=== PATIENT | female | born 2000 | race Caucasian/White ===

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

== ENCOUNTER 2020-02-04 18:03 | Emergency (ER) | payer MEDICAID ==
[2020-02-04] MEDS ORDERED: Sodium Chloride 0.9% 10 ML Syringe FLUSH PRN (18:20)
[2020-02-04 18:56] VITALS: BP 129/96; PULSE 80
--- NOTE | 2020-02-04 19:07 | EDM.PDOC ---
ED HPI GENERAL MEDICAL PROBLEM - General Chief Complaint: Abdominal Pain Stated Complaint: PAIN IN RT ABDOMEN Time Seen by Provider: 02/04/20 18:15 Source of Information: Reports: Patient History Limitations: Reports: No Limitations - History of Present Illness INITIAL COMMENTS - FREE TEXT/NARRATIVE: Patient comes emergency department today with complaints of increasing right u pper quadrant pain. This patient has noticed over the past couple of months that she has had this soreness painful area to her right upper quadrant that kind of comes and goes on its own. Since last night the pain is gotten worse and is very tender when she the right upper quadrant. She has had some nausea without vomiting. She has had poor appetite. No chest pain no shortness of breath or difficulty breathing. No cough or congestion. No fever no chills. No diarrhea. No other abdominal pain. No hematuria dysuria or urinary frequency. No flank pain. She has not tried anything for pain prior to arrival. She denies any previous surgeries on her abdomen. She denies being . 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: Reports: Acetaminophen Right Upper Abdomen Pain Score (Numeric/FACES): 8 - Related Data Allergies Allergy/AdvReac Type Severity Reaction Status Date / Time bee pollen Allergy Itching Verified 02/04/20 18:50 house dust Allergy Itching Verified 02/04/20 18:50 Home Meds: Home Meds Ibuprofen [Motrin] 200 mg PO Q4H PRN 04/24/13 [History] EPINEPHrine [Epipen Jr 2-Alistair] 0.15 mg IJ ASDIRECTED PRN #1 syr 12/04/13 [Rx] Multivitamin [Multi Vitamin Daily] 1 tab PO DAILY 12/04/13 [History] Acetaminophen [Tylenol] 650 mg PO Q4H PRN 02/04/20 [History] Amoxicillin/Potassium Clav [Amox-Clav 875-125 mg Tablet] 1 tab PO TID 02/04/20 [History] Hydrocodone/Acetaminophen [[place] 5-325 Tablet] 1 each PO Q6H #10 tablet 02/04/20 [Rx] Past Medical History - Past Health History Medical/Surgical History: Denies Medical/Surgical History Social & Family History - Living Situation & Occupation Living situation: Reports: with Family ED ROS GENERAL - Review of Systems Review Of Systems: Comprehensive ROS is negative, except as noted in HPI. ED EXAM, GI/ABD - Physical Exam Exam: See Below Exam Limited By: No Limitations General Appearance: Alert, WD/WN, No Apparent Distress Ears: Normal External Exam Nose: Normal Inspection Throat/Mouth: Normal Inspection Head: Atraumatic, Normocephalic Neck: Normal Inspection, Supple, Non-Tender Respiratory/Chest: No Respiratory Distress, Lungs Clear, Normal Breath Sounds, No Accessory Muscle Use, Chest Non-Tender Cardiovascular: Normal Peripheral Pulses, Regular Rate, Rhythm GI/Abdominal Exam: Normal Bowel Sounds, Soft, Guarding (RUQ with a positive [place] signs. NO rebound tenderness. The rest of the abd is soft non-tender and none distended. ), Tender (RUQ). No: Distended, Rebound (Female) Exam: Deferred Rectal (Female) Exam: Deferred Back Exam: Normal Inspection, Full Range of Motion Extremities: Normal Inspection, Normal Range of Motion, Non-Tender, No Pedal Edema, Normal Capillary Refill Neurological: Alert, Oriented, Normal Cognition, No Motor/Sensory Deficits Psychiatric: Normal Affect, Normal Mood Skin Exam: Warm, Dry, Intact, Normal Color, No Rash Course - Vital Signs Last Recorded V/S: Last Vital Signs Temp 98.2 F 02/04/20 18:05 Pulse 80 02/04/20 18:05 Resp 16 02/04/20 18:05 BP 129/96 H 02/04/20 18:05 Pulse Ox 100 02/04/20 18:05 - Orders/Labs/Meds Orders: Active Orders 24 hr Category Date Time Status Sodium Chloride 0.9% [Saline Flush] Med 02/04/20 18:20 Active 10 ml FLUSH ASDIRECTED PRN Peripheral IV Insertion Adult [OM.PC] Stat Oth 02/04/20 18:21 Ordered Medication Orders Sodium Chloride (Saline Flush) 10 ml FLUSH ASDIRECTED PRN PRN Reason: Keep Vein Open Labs: Laboratory Tests 02/04/20 02/04/20 02/04/20 Range/Units 18:45 18:45 19:02 WBC 6.0 (4.0-10.0) x10^3/uL RBC 4.41 (4.00-5.50) x10^6/uL Hgb 12.2 (12.0-16.0) g/dL Hct 36.4 (33.0-47.0) % MCV 82.5 (78.0-93.0) fL MCH 27.7 (26.0-32.0) pg MCHC 33.5 (32.0-36.0) g/dL RDW Coeff of [place] 12.0 (10.0-15.0) % Plt Count 205 (130-400) x10^3/uL Neut % (Auto) 60.5 (50.0-80.0) % Lymph % (Auto) 29.9 (25.0-50.0) % [place] % (Auto) 6.1 (2.0-11.0) % Eos % (Auto) 3.2 (0.0-4.0) % Baso % (Auto) 0.3 (0.2-1.2) % Sodium 139 (136-145) mmol/L Potassium 3.9 (3.5-5.1) mmol/L Chloride 103 (98-107) mmol/L Carbon Dioxide 27 (21-32) mmol/L Anion Gap 12.9 (10-20) mmol/L BUN 17 (7-18) mg/dL Creatinine 0.9 (0.55-1.02) mg/dL Est Cr Clr Drug Dosing 72.22 mL/min Estimated GFR (MDRD) > 60 Glucose 111 H (74-106) mg/dL Calcium 9.0 (8.5-10.1) mg/dL Corrected Calcium 9.08 (8.5-10.1) mg/dL Total Bilirubin 0.3 (0.2-1.0) mg/dL AST 13 L (15-37) U/L ALT 16 (14-59) U/L Alkaline Phosphatase 111 (46-116) U/L C-Reactive Protein 0.4 (<=0.9) mg/dL Total Protein 7.5 (6.4-8.2) g/dL Albumin 3.9 (3.4-5.0) g/dL Globulin 3.6 Albumin/Globulin Ratio 1.08 Lipase 58 L (73-393) U/L Urine Color Yellow (YELLOW) Urine Appearance Clear (CLEAR) Urine pH 6.0 (5.0-8.0) Ur Specific [place] >=1.030 Urine Protein Negative (NEGATIVE) mg/dL Urine Glucose (UA) Negative (NEGATIVE) mg/dL Urine Ketones Negative (NEGATIVE) mg/dL Urine Occult Blood Negative (NEGATIVE) Urine Nitrite Negative (NEGATIVE) Urine Bilirubin Negative (NEGATIVE) Urine Urobilinogen 0.2 (0.2) EU/dL Ur Leukocyte Esterase Negative (NEGATIVE) Urine HCG, Qual (NEGATIVE) 02/04/20 Range/Units 19:02 WBC (4.0-10.0) x10^3/uL RBC (4.00-5.50) x10^6/uL Hgb (12.0-16.0) g/dL Hct (33.0-47.0) % MCV (78.0-93.0) fL MCH (26.0-32.0) pg MCHC (32.0-36.0) g/dL RDW Coeff of [place] (10.0-15.0) % Plt Count (130-400) x10^3/uL Neut % (Auto) (50.0-80.0) % Lymph % (Auto) (25.0-50.0) % [place] % (Auto) (2.0-11.0) % Eos % (Auto) (0.0-4.0) % Baso % (Auto) (0.2-1.2) % Sodium (136-145) mmol/L Potassium (3.5-5.1) mmol/L Chloride (98-107) mmol/L Carbon Dioxide (21-32) mmol/L Anion Gap (10-20) mmol/L BUN (7-18) mg/dL Creatinine (0.55-1.02) mg/dL Est Cr Clr Drug Dosing mL/min Estimated GFR (MDRD) Glucose (74-106) mg/dL Calcium (8.5-10.1) mg/dL Corrected Calcium (8.5-10.1) mg/dL Total Bilirubin (0.2-1.0) mg/dL AST (15-37) U/L ALT (14-59) U/L Alkaline Phosphatase (46-116) U/L C-Reactive Protein (<=0.9) mg/dL Total Protein (6.4-8.2) g/dL Albumin (3.4-5.0) g/dL Globulin Albumin/Globulin Ratio Lipase (73-393) U/L Urine Color (YELLOW) Urine Appearance (CLEAR) Urine pH (5.0-8.0) Ur Specific [place] Urine Protein (NEGATIVE) mg/dL Urine Glucose (UA) (NEGATIVE) mg/dL Urine Ketones (NEGATIVE) mg/dL Urine Occult Blood (NEGATIVE) Urine Nitrite (NEGATIVE) Urine Bilirubin (NEGATIVE) Urine Urobilinogen (0.2) EU/dL Ur Leukocyte Esterase (NEGATIVE) Urine HCG, Qual Negative (NEGATIVE) Meds: Medications Generic Name Dose Route Start Last Admin Trade Name Freq PRN Reason Stop Dose Admin Sodium Chloride 10 ml 02/04/20 18:20 Saline Flush FLUSH ASDIRECTED PRN Keep Vein Open Discontinued Medications Generic Name Dose Route Start Last Admin Trade Name Freq PRN Reason Stop Dose Admin Hydrocodone Bitart/Acetaminophen 1 packet 02/04/20 19:53 02/04/20 20:17 Take Home: Acetam/Hydrocodon 325-5 Mg, 5 Pack PO 02/04/20 19:54 1 packet ONETIME ONE Administration Hydromorphone HCl 0.5 mg 02/04/20 18:21 02/04/20 19:32 Dilaudid IV 02/04/20 18:22 0.5 mg ONETIME ONE Administration Lactated Ringer's 1,000 mls @ 999 mls/hr 02/04/20 18:21 02/04/20 19:20 Ringers, Lactated IV 02/04/20 19:21 999 mls/hr ONETIME ONE Administration Ondansetron HCl 4 mg 02/04/20 18:21 02/04/20 19:21 Zofran IV 02/04/20 18:22 4 mg ONETIME ONE Administration - Re-Assessments/Exams Free Text/Narrative Re-Assessment/Exam: 02/04/20 Patient initially was given a liter of fluids Zofran and Dilaudid. Labs drawn. Urine pending. Her labs are really unremarkable. She has a normal white blood cell count. Normal liver enzymes and urinalysis.. Reexamination of her abdomen shows a soft nontender nondistended abdomen. Really of concern for biliary colic type syndrome tonight. She does not have any elevation in her LFTs or elevated white blood cell count and her pain is resolved. We will discharge her home at this time with some oral pain medication and instruction on biliary colic diet. I like her to follow-up with her primary care in the next week or so for a recheck and consideration for her gallbladder. She was understanding of this her questions were answered. Departure - Departure Time of Disposition: 19:53 Disposition: Home, Self-Care 01 Clinical Impression: Biliary colic - Discharge Information Prescriptions: Hydrocodone/Acetaminophen [[place] 5-325 Tablet] 1 each PO Q6H #10 tablet Instructions: Cholelithiasis, [id number], Biliary Colic, Adult Referrals: PCP,None [Primary Care Provider] - Forms: ED Department Discharge Additional Instructions: Tylenol as needed for pain. Lots of fluids over the next few days. Stay away from greasy fatty foods. See the discharge instructions provided. If pain not controlled with above. [place] 1 tablet every 6 hrs with food as needed for pain. Caution sedation. 5 sent home from the ED and RX sent to [facility]. Return to the ED if new or worsening symptoms. Follow up with PCP in the next week for recheck. Sepsis Event Note (ED) - Evaluation Sepsis Screening Result: No Definite Risk - Focused Exam Vital Signs: Vital Signs Temp Pulse Resp BP Pulse Ox 02/04/20 18:05 98.2 F 80 16 129/96 H 100 - My Orders Last 24 Hours: My Active Orders 02/04/20 18:20 Sodium Chloride 0.9% [Saline Flush] 10 ml FLUSH ASDIRECTED PRN 02/04/20 18:21 Peripheral IV Insertion Adult [OM.PC] Stat - Assessment/Plan Last 24 Hours: My Active Orders 02/04/20 18:20 Sodium Chloride 0.9% [Saline Flush] 10 ml FLUSH ASDIRECTED PRN 02/04/20 18:21 Peripheral IV Insertion Adult [OM.PC] Stat
[2020-02-04] MEDS: Lactated Ringers 1,000 ML IV ONE (19:20)
[2020-02-04] MEDS: Ondansetron 4 MG/2 ML SDV IV ONE (19:21)
[2020-02-04 19:23] LABS: CHLORIDE,CL 103 mmol/L (98-107); SODIUM,NA 139 mmol/L (136-145)
[2020-02-04 19:27] LABS: ANION GAP 12.9 mmol/L (10-20)
[2020-02-04] MEDS: HYDROmorphone 0.5 MG/0.5 ML Syringe IV ONE (19:32)
[2020-02-04] MEDS: Take Home: Acetaminophen/HYDROcodone 325-5 MG, 5 Tab Pack PO ONE (20:17)
== END 2020-02-04 20:25 | disposition home or self-care (01) ==
LOC: VM.ED 18:03
DX: K80.50 Calculus of bile duct without cholangitis or cholecystitis without obstruction (principal); Z91.048 Other nonmedicinal substance allergy status
CPT/HCPCS: 80053; 81003; 81025; 83690; 85025; 86140; 96361; 96374; 96375; 99284; 99284-25; A9270-GY; J1170; J2405; J7120

== ENCOUNTER 2020-03-09 16:23 | Emergency (ER) | payer MEDICAID ==
[2020-03-09] MEDS ORDERED: Sodium Chloride 0.9% 10 ML Syringe FLUSH PRN (17:18)
[2020-03-09] MEDS ORDERED: Ketorolac 30 MG/ML SDV IVPUSH ONE (17:19)
[2020-03-09] MEDS ORDERED: Albuterol HFA 18 Gm Inhaler INH STA (17:19)
--- NOTE | 2020-03-09 17:25 | EDM.PDOC ---
ED HPI GENERAL MEDICAL PROBLEM - General Stated Complaint: STOMACH PAIN Time Seen by Provider: 03/09/20 16:52 Source of Information: Reports: Patient - History of Present Illness INITIAL COMMENTS - FREE TEXT/NARRATIVE: Ximena is a 19 y/o female who comes to the ER via POV with chest discomfort. She reports that she first did not feel well with congestion and cough in 03/01 and had a telemed visit/ Her rapid COVID test that day was negative. She then had another test on 03/06/2020 since she was still not feeling well and that returned +. She has been having a decreased appetite, nausea, body aches, and a dry hacky cough. Yesterday her chest started to hurt. She tried APAP and Motrin and then also tried a hydrocodone tablet that she had at home. Still rates the pain 10/04 and describes it as a "throbbing" pain and "sometimes she feels her heart beat". Abdominal Pain Score (Numeric/FACES): 6 Chest Pain Score (Numeric/FACES): 7 - Related Data Allergies Allergy/AdvReac Type Severity Reaction Status Date / Time bee pollen Allergy Itching Verified 02/04/20 18:50 house dust Allergy Itching Verified 02/04/20 18:50 Home Meds: Home Meds Ibuprofen [Motrin] 200 mg PO Q4H PRN 04/24/13 [History] EPINEPHrine [Epipen Jr 2-Alistair] 0.15 mg IJ ASDIRECTED PRN #1 syr 12/04/13 [Rx] Multivitamin [Multi Vitamin Daily] 1 tab PO DAILY 12/04/13 [History] Acetaminophen [Tylenol] 650 mg PO Q4H PRN 02/04/20 [History] Hydrocodone/Acetaminophen [[place] 5-325 Tablet] 1 each PO Q6H #10 tablet 02/04/20 [Rx] Past Medical History - Past Health History Medical/Surgical History: Denies Medical/Surgical History - Past Surgical History Other HEENT Surgeries/Procedures: tooth extraction Social & Family History - Family History Family Medical History: No Pertinent Family History - Caffeine Use Caffeine Use: Reports: None - Living Situation & Occupation Living situation: Reports: with Family Review of Systems - Review of Systems Review Of Systems: See Below Constitutional: Reports: Fever Eyes: Reports: No Symptoms Ears: Reports: No Symptoms Nose: Reports: Congestion Mouth/Throat: Reports: Difficulty Swallowing Respiratory: Reports: Cough Cardiovascular: Reports: Chest Pain GI/Abdominal: Reports: Decreased Appetite, Nausea Genitourinary: Reports: No Symptoms Musculoskeletal: Reports: Other (Body Aches) Skin: Reports: No Symptoms Neurological: Reports: Headache Psychiatric: Reports: No Symptoms ED EXAM, GENERAL - Physical Exam Exam: See Below Exam Limited By: No Limitations General Appearance: Alert, WD/WN, No Apparent Distress (Young adult female) Eye Exam: Bilateral Eye: PERRL Ears: Normal External Exam, Normal Canal, Hearing Grossly Normal, Normal TMs Nose: Normal Inspection, Normal Mucosa Throat/Mouth: Normal Inspection, Normal Lips, Normal Teeth, Normal Gums, Normal Oropharynx, Normal Voice Head: Atraumatic, Normocephalic Neck: Supple, Non-Tender Respiratory/Chest: No Respiratory Distress, Lungs Clear, Normal Breath Sounds, Chest Non-Tender Cardiovascular: Normal Peripheral Pulses, Regular Rate, Rhythm, No Edema GI/Abdominal: Normal Bowel Sounds, Soft, Non-Tender (Female) Exam: Deferred Rectal (Female) Exam: Deferred Back Exam: Normal Inspection Extremities: Normal Inspection, Normal Range of Motion, Normal Capillary Refill Neurological: Alert, Oriented, CN II-XII Intact, Normal Cognition Psychiatric: Normal Affect, Normal Mood Skin Exam: Warm, Dry, Intact, Normal Color Lymphatic: No Adenopathy #1 Interpretation EKG Date: 03/09/20 Time: 16:44 Rhythm: NSR Rate (Beats/Min): 76 [place]: Normal P-Wave: Present QRS: Normal ST-T: Normal QT: Normal Course - Vital Signs Text/Narrative:: 1651 The patient was seen by the ANALYSIS ENGINEER. Labs, EKG, and CXR ordered. She was given Toradol 30mg IV for pain and Albuterol MDI 4 puffs for the cough. 1809 Labs all negative. CXR reviewed and no acute findings noted. Results discussed with patient. She reports feeling better. She was given discharge instructions and left the ER in stable condition. Last Recorded V/S: Last Vital Signs Temp 36.8 C 03/09/20 16:25 Pulse 73 03/09/20 16:25 Resp 16 03/09/20 16:25 BP 136/69 03/09/20 16:25 Pulse Ox 99 03/09/20 16:25 - Orders/Labs/Meds Orders: Active Orders 24 hr Category Date Time Status EKG Documentation Completion [RC] STAT Care 03/09/20 17:18 Active Chest 2V [CR] Stat Exams 03/09/20 17:18 Taken Sodium Chloride 0.9% [Saline Flush] Med 03/09/20 17:18 Active 10 ml FLUSH ASDIRECTED PRN Saline Lock Insert [OM.PC] Stat Oth 03/09/20 17:18 Ordered Medication Orders Sodium Chloride (Saline Flush) 10 ml FLUSH ASDIRECTED PRN PRN Reason: Keep Vein Open Labs: Laboratory Tests 03/09/20 03/09/20 03/09/20 Range/Units 17:29 17:29 17:29 WBC 5.0 (4.0-10.0) x10^3/uL RBC 4.42 (4.00-5.50) x10^6/uL Hgb 12.3 (12.0-16.0) g/dL Hct 37.7 (33.0-47.0) % MCV 85.3 (78.0-93.0) fL MCH 27.8 (26.0-32.0) pg MCHC 32.6 (32.0-36.0) g/dL RDW Coeff of [place] 12.4 (10.0-15.0) % Plt Count 190 (130-400) x10^3/uL Neut % (Auto) 65.5 (50.0-80.0) % Lymph % (Auto) 24.3 L (25.0-50.0) % [place] % (Auto) 7.2 (2.0-11.0) % Eos % (Auto) 2.8 (0.0-4.0) % Baso % (Auto) 0.2 (0.2-1.2) % D-Dimer, Quantitative 0.26 (<=0.58) mg/LFEU Sodium 139 (136-145) mmol/L Potassium 4.5 (3.5-5.1) mmol/L Chloride 104 (98-107) mmol/L Carbon Dioxide 30 (21-32) mmol/L Anion Gap 9.5 L (10-20) mmol/L BUN 16 (7-18) mg/dL Creatinine 0.9 (0.55-1.02) mg/dL Est Cr Clr Drug Dosing TNP Estimated GFR (MDRD) > 60 Glucose 102 (74-106) mg/dL Calcium 9.0 (8.5-10.1) mg/dL Corrected Calcium 9.16 (8.5-10.1) mg/dL Total Bilirubin 0.4 (0.2-1.0) mg/dL AST 11 L (15-37) U/L ALT 15 (14-59) U/L Alkaline Phosphatase 104 (46-116) U/L Troponin I < 0.017 (<=0.056) ng/mL Total Protein 7.3 (6.4-8.2) g/dL Albumin 3.8 (3.4-5.0) g/dL Globulin 3.5 Albumin/Globulin Ratio 1.09 Meds: Medications Generic Name Dose Route Start Last Admin Trade Name Freq PRN Reason Stop Dose Admin Sodium Chloride 10 ml 03/09/20 17:18 Saline Flush FLUSH ASDIRECTED PRN Keep Vein Open Discontinued Medications Generic Name Dose Route Start Last Admin Trade Name Freq PRN Reason Stop Dose Admin Albuterol 4 gm 03/09/20 17:19 03/09/20 17:37 Ventolin Hfa INH 03/09/20 17:20 4 puff NOW STA Administration Ketorolac Tromethamine 30 mg 03/09/20 17:19 Toradol IVPUSH 03/09/20 17:20 ONETIME ONE Ketorolac Tromethamine 30 mg 03/09/20 17:30 03/09/20 17:38 Toradol IM 03/09/20 17:31 30 mg ONETIME ONE Administration - Radiology Interpretation Free Text/Narrative:: XR Chest 2V=no acute findings (See final report) Departure - Departure Time of Disposition: 18:15 Disposition: Home, Self-Care 01 Condition: Good Clinical Impression: COVID-19 Chest pain Qualifiers: Chest pain type: unspecified Qualified Code(s): R07.9 - Chest pain, unspecified - Discharge Information Instructions: Prevent the Spread of COVID-19 if You Are Sick - CDC, COVID-19 Frequently Asked Questions Referrals: Jenny Vasques PA-C [Primary Care Provider] - Sepsis Event Note (ED) - Focused Exam Vital Signs: Vital Signs Temp Pulse Resp BP Pulse Ox 03/09/20 16:25 36.8 C 73 16 136/69 99 - My Orders Last 24 Hours: My Active Orders 03/09/20 17:18 EKG Documentation Completion [RC] STAT Chest 2V [CR] Stat Sodium Chloride 0.9% [Saline Flush] 10 ml FLUSH ASDIRECTED PRN Saline Lock Insert [OM.PC] Stat - Assessment/Plan Last 24 Hours: My Active Orders 03/09/20 17:18 EKG Documentation Completion [RC] STAT Chest 2V [CR] Stat Sodium Chloride 0.9% [Saline Flush] 10 ml FLUSH ASDIRECTED PRN Saline Lock Insert [OM.PC] Stat Assessment:: 1)Chest Discomfort 2)COVID-19+ Plan: -Albuterol HFA inhaler 1-2 puffs every 4 hours as needed for cough (Use the inhaler hat was given to you in the ER) -Any over the counter meds that are helpful are fine to use. -Honey 1-2 tsp every couple hours is an effective antitussive. -Follow the quarantine guidelines -Some helpful supplements to help with COVID 19 include Zinc, Vitamin C, and Vitamin D -If you develop any shortness or breath or cannot take care of yourself, return to the ER.
[2020-03-09] MEDS ORDERED: Ketorolac 30 MG/ML SDV IM ONE (17:30)
[2020-03-09 17:56] LABS: CHLORIDE,CL 104 mmol/L (98-107); SODIUM,NA 139 mmol/L (136-145)
[2020-03-09 17:57] LABS: ANION GAP 9.5 mmol/L (10-20)
[2020-03-09 18:01] VITALS: BP 136/69; PULSE 73
--- NOTE | 2020-03-09 18:24 | CR ---
[id number] RAD/RAD Chest PA And Lateral EXAM: RAD Chest PA And Lateral CLINICAL DATA: VIRAL INFECTION CHEST DISCOMFORT COMPARISON: CORRELATION IS MADE WITH OCTOBER 07, 2019 FINDINGS: The lungs are clear. The cardiomediastinal contour is normal. The regional bones and soft tissues are unremarkable. IMPRESSION: NO ACUTE PROCESS. Jamison Isbell MD 03/09/20 [id number] Thank you for allowing us to participate in the care of your patient.
== END 2020-03-09 18:30 | disposition home or self-care (01) ==
LOC: VM.ED 16:23
DX: U07.1 COVID-19 (principal); Z91.030 Bee allergy status; Z91.048 Other nonmedicinal substance allergy status
CPT/HCPCS: 36415; 71046; 80053; 84484; 85025; 85379; 93005; 93010; 96372; 99284; 99285; A9270; J1885